=== PATIENT | female | born 1950 | race Caucasian/White ===

== ENCOUNTER → 2017-10-10 | Emergency (ER) | payer OTHER ==
[~2017-10-10] VITALS: Ht 149.9 cm; Wt 59.0 kg
[~2017-10-10] MED LIST: CYCLOBENZAPRINE10 MG PO; KETO10TA2 PO; ORPHENADRINE C100 MG PO
== END | disposition home or self-care (01) ==
LOC: ER 10:19
DX: S30.0XXA Contusion of lower back and pelvis, initial encounter (principal); W10.8XXA Fall (on) (from) other stairs and steps, initial encounter; Y93.01 Activity, walking, marching and hiking; Y92.018 Other place in single-family (private) house as the place of occurrence of the external cause; Y99.8 Other external cause status

== ENCOUNTER 2017-12-19 08:50 | Outpatient (CLI) | payer OTHER | END 2017-12-19 08:59 | disposition home or self-care (01) | LOC: MAMO-SONO 08:50 | DX: Z12.31 Encounter for screening mammogram for malignant neoplasm of breast (principal); Z87.898 Personal history of other specified conditions; N60.81 Other benign mammary dysplasias of right breast; N60.82 Other benign mammary dysplasias of left breast ==

== ENCOUNTER 2017-12-31 11:18 | Outpatient (CLI) | payer OTHER | END 2017-12-31 17:00 | disposition home or self-care (01) | LOC: RAD 11:18 → NUCLEAR 12:00 → RAD 17:00 | DX: R06.02 Shortness of breath (principal); J43.2 Centrilobular emphysema ==

== ENCOUNTER → 2017-12-31 | Outpatient (CLI) | payer OTHER | END | disposition home or self-care (01) | LOC: NUCLEAR 12:03 | DX: M85.89 Other specified disorders of bone density and structure, multiple sites (principal) ==

== ENCOUNTER 2018-01-24 08:03 | Outpatient (CLI) | payer OTHER | END 2018-01-24 15:14 | disposition home or self-care (01) | LOC: TOM 08:03 | DX: R06.02 Shortness of breath (principal); J43.2 Centrilobular emphysema; M15.0 Primary generalized (osteo)arthritis ==

== ENCOUNTER 2018-07-30 08:22 | Outpatient (CLI) | payer OTHER | END 2018-07-30 08:29 | disposition home or self-care (01) | LOC: RAD 08:22 | DX: M54.5 Low back pain (principal); M25.552 Pain in left hip; M25.551 Pain in right hip ==

== ENCOUNTER 2018-08-01 07:31 | Outpatient (CLI) | payer OTHER | END 2018-08-01 07:39 | disposition home or self-care (01) | LOC: TOM 07:31 | DX: R06.02 Shortness of breath (principal); J43.2 Centrilobular emphysema; F17.200 Nicotine dependence, unspecified, uncomplicated ==

== ENCOUNTER 2018-08-08 08:19 | Outpatient (CLI) | payer OTHER | END 2018-08-08 08:30 | disposition home or self-care (01) | LOC: MRI 08:19 | DX: M54.5 Low back pain (principal) | CPT/HCPCS: 72148 ==

== ENCOUNTER 2019-02-27 07:40 | Outpatient (CLI) | payer OTHER | END 2019-02-27 17:00 | disposition home or self-care (01) | LOC: RAD 07:40 | DX: J80 Acute respiratory distress syndrome (principal) ==

== ENCOUNTER 2019-02-28 16:10 | Emergency (ER) | payer OTHER ==
[~2019-02-28] VITALS: Ht 152.4 cm; Wt 59.0 kg
== END 2019-02-28 20:29 | disposition home or self-care (01) ==
LOC: ER 16:10
DX: J45.998 Other asthma (principal); B96.0 Mycoplasma pneumoniae [M. pneumoniae] as the cause of diseases classified elsewhere

== ENCOUNTER 2019-05-19 07:56 | Outpatient (CLI) | payer OTHER | END 2019-05-19 11:43 | disposition home or self-care (01) | LOC: RAD 07:56 | DX: J44.1 Chronic obstructive pulmonary disease with (acute) exacerbation (principal) ==

== ENCOUNTER 2019-11-18 08:02 | Outpatient (CLI) | payer OTHER | END 2019-11-18 08:08 | disposition home or self-care (01) | LOC: RAD 08:02 | DX: R07.89 Other chest pain (principal) ==

== ENCOUNTER 2020-03-09 07:23 | Outpatient (CLI) | payer OTHER | END 2020-03-09 07:28 | disposition home or self-care (01) | LOC: MAMO-SONO 07:23 | DX: Z12.31 Encounter for screening mammogram for malignant neoplasm of breast (principal); Z87.898 Personal history of other specified conditions; N64.59 Other signs and symptoms in breast ==

== ENCOUNTER → 2020-03-15 | Outpatient (CLI) | payer OTHER | END | disposition home or self-care (01) | LOC: NUCLEAR 09:00 | DX: M85.89 Other specified disorders of bone density and structure, multiple sites (principal) ==

== ENCOUNTER 2020-03-23 11:15 | Outpatient (CLI) | payer OTHER | END 2020-03-23 12:06 | disposition home or self-care (01) | LOC: RAD 11:15 | DX: M54.40 Lumbago with sciatica, unspecified side (principal) ==

== ENCOUNTER 2022-01-31 09:10 | Outpatient (CLI) | payer OTHER | END 2022-01-31 09:20 | disposition home or self-care (01) | LOC: MRI 09:10 | PROVIDERS: ATTEND General Practice | DX: M54.50 Low back pain, unspecified (principal) | CPT/HCPCS: 72148 ==

== ENCOUNTER → 2022-02-16 | Outpatient (CLI) | payer OTHER | END | disposition home or self-care (01) | LOC: NUCLEAR 11:03 | PROVIDERS: ATTEND Anesthesiology Pain Medicine | DX: M85.80 Other specified disorders of bone density and structure, unspecified site (principal) ==

== ENCOUNTER 2022-03-21 10:29 | Outpatient (CLI) | payer OTHER | END 2022-03-21 10:39 | disposition home or self-care (01) | LOC: MAMO-SONO 10:29 | PROVIDERS: ATTEND Obstetrics & Gynecology | DX: N60.11 Diffuse cystic mastopathy of right breast (principal) ==

== ENCOUNTER 2022-05-10 07:34 | Outpatient (CLI) | payer OTHER | END 2022-05-10 13:04 | disposition home or self-care (01) | LOC: TOM 07:34 | PROVIDERS: ATTEND Internal Medicine Gastroenterology | DX: K52.9 Noninfective gastroenteritis and colitis, unspecified (principal); Z12.11 Encounter for screening for malignant neoplasm of colon ==

== ENCOUNTER 2022-05-25 11:16 | Outpatient (CLI) | payer OTHER | END 2022-05-25 11:25 | disposition home or self-care (01) | LOC: RAD 11:16 | PROVIDERS: ATTEND Physical Medicine & Rehabilitation | DX: M54.50 Low back pain, unspecified (principal); M16.0 Bilateral primary osteoarthritis of hip ==

== ENCOUNTER → 2022-10-26 | Outpatient (CLI) | payer OTHER | END | disposition home or self-care (01) | LOC: RAD 07:40 | DX: M54.2 Cervicalgia (principal) ==

== ENCOUNTER 2022-11-29 13:13 | Outpatient (CLI) | payer OTHER | END 2022-11-29 13:21 | disposition home or self-care (01) | LOC: MRI 13:13 | DX: M54.59 Other low back pain (principal); M54.16 Radiculopathy, lumbar region | CPT/HCPCS: 72148 ==

== ENCOUNTER 2023-05-01 07:58 | Outpatient (CLI) | payer OTHER | END 2023-05-01 16:24 | disposition home or self-care (01) | LOC: MAMO-SONO 07:58 | DX: Z12.31 Encounter for screening mammogram for malignant neoplasm of breast (principal); Z12.39 Encounter for other screening for malignant neoplasm of breast ==

== ENCOUNTER 2023-05-31 16:11 | Inpatient (IN) | payer OTHER ==
[~2023-05-31] VITALS: Ht 149.9 cm; Wt 66.2 kg
[2023-05-31] MEDS ORDERED: COZAAR25 MG PO (16:38)
[2023-06-07] MEDS ORDERED: BENZONATATE100 MG PO (18:07)
[2023-06-07] MEDS ORDERED: MONTELUKAST SOD10 MG PO (18:07)
[2023-06-07] MEDS ORDERED: CLONAZEPAM0.5 MG PO (18:07)
[2023-06-07] MEDS ORDERED: LOSARTAN POTASS25 MG PO (18:07)
[2023-06-07] MEDS ORDERED: LIPITOR20 MG PO (18:07)
[2023-06-07] MEDS ORDERED: IPRATROPIU0.2 MG/1 M IH (18:07)
[2023-06-07] MEDS ORDERED: SYMBICORT 16010.2 GM IH (18:07)
[2023-06-07] MEDS ORDERED: BUDESONIDE0.5 MG/2 M IH (18:07)
[2023-06-07] MEDS ORDERED: XOPENEX CO1.25 MG/0. IH (18:07)
== END 2023-06-07 18:28 | disposition home or self-care (01) | DRG 194 ==
LOC: ER 16:11 → MEDJ 20:05
PROVIDERS: General Practice; ADMIT Internal Medicine; ATTEND Internal Medicine
PROC: BW24ZZZ Computerized Tomography (CT Scan) of Chest and Abdomen (ICD-10-PCS; principal; 2023-05-31)
PROC: 3E0F7GC Introduction of Other Therapeutic Substance into Respiratory Tract, Via Natural or Artificial Opening (ICD-10-PCS; 2023-06-01)
PROC: B24BYZZ Ultrasonography of Heart with Aorta using Other Contrast (ICD-10-PCS; 2023-06-03)
DX: J18.9 Pneumonia, unspecified organism (principal); J44.1 Chronic obstructive pulmonary disease with (acute) exacerbation; J45.901 Unspecified asthma with (acute) exacerbation; J20.9 Acute bronchitis, unspecified; J44.9 Chronic obstructive pulmonary disease, unspecified; R09.02 Hypoxemia; Z99.81 Dependence on supplemental oxygen; I10 Essential (primary) hypertension; Z87.891 Personal history of nicotine dependence

== ENCOUNTER 2023-12-04 07:10 | Outpatient (CLI) | payer OTHER ==
[~2023-12-04 07:10] MED LIST changes: +BENZONATATE100 MG PO; +BUDESONIDE0.5 MG/2 M IH; +CLONAZEPAM0.5 MG PO; +COZAAR25 MG PO; +IPRATROPIU0.2 MG/1 M IH; +LIPITOR20 MG PO; +LOSARTAN POTASS25 MG PO; +MONTELUKAST SOD10 MG PO; +SYMBICORT 16010.2 GM IH; +XOPENEX CO1.25 MG/0. IH
== END 2023-12-04 07:31 | disposition home or self-care (01) ==
LOC: RAD 07:10
PROVIDERS: ATTEND General Practice
DX: M54.2 Cervicalgia (principal)

== ENCOUNTER → 2024-04-18 | Outpatient (CLI) | payer OTHER | END | disposition home or self-care (01) | LOC: NUCLEAR 07:17 | PROVIDERS: ATTEND Physical Medicine & Rehabilitation | DX: M13.0 Polyarthritis, unspecified (principal) | CPT/HCPCS: 78315; A9503 ==

== ENCOUNTER 2024-04-19 12:48 | Emergency (ER) | payer OTHER ==
[~2024-04-19] VITALS: Ht 149.9 cm; Wt 59.0 kg
[2024-04-19] MEDS ORDERED: TRAMADOL HCL 50 MG TABLET PO STA ×2 (14:59→15:11)
== END 2024-04-19 16:22 | disposition home or self-care (01) ==
LOC: ER 12:49
DX: M25.461 Effusion, right knee (principal); M19.90 Unspecified osteoarthritis, unspecified site; I10 Essential (primary) hypertension; M79.7 Fibromyalgia

== ENCOUNTER 2024-05-08 09:29 | Outpatient (CLI) | payer OTHER | END 2024-05-08 09:33 | disposition home or self-care (01) | LOC: RAD 09:29 | PROVIDERS: ATTEND Orthopaedic Surgery | DX: M25.512 Pain in left shoulder (principal); M25.561 Pain in right knee ==

== ENCOUNTER 2024-05-12 07:55 | Outpatient (CLI) | payer OTHER | END 2024-05-12 08:06 | disposition home or self-care (01) | LOC: MRI 07:55 | PROVIDERS: ATTEND Orthopaedic Surgery | DX: M25.512 Pain in left shoulder (principal); M25.561 Pain in right knee | CPT/HCPCS: 73721 ==